=== PATIENT | female | born 1940 | race Caucasian/White ===

== ENCOUNTER 2016-06-23 13:05 | Emergency (ER) | payer MEDICARE, BC ==
[2016-06-23] MEDS ORDERED: SODIUM CHLORIDE 0.9% 1,000 ML ONE (15:09)
== END 2016-06-23 18:01 | disposition home or self-care (01) ==
LOC: ER 13:05
DX: R53.1 Weakness (principal)
CPT/HCPCS: 36415; 71010; 80053; 81003; 82553; 83880; 84484; 85025; 87804; 93005; 96360